=== PATIENT | female | born 1960 | race Caucasian/White ===

== ENCOUNTER → 2016-07-06 | Outpatient (CLI) | payer MEDICAID ==
[2016-07-06 12:04] LABS: Basophils # (A) 0.1 k/uL (0-0.2); Basophils % (A) 1 %; CH 33.5; CHCM 33.3; Eosinophils # (A) 0.2 k/uL (0-0.7); Eosinophils % (A) 2 %; HCT 42.3 % (34.0-46.0); HDW 2.13; HGB 14.5 gm/dL (11.4-16.0); Luc # (Auto) 0.15; Luc % (Auto) 2; Lymphocytes # (A) 3.8 k/uL (1.0-4.8); Lymphocytes % (A) 41 %; MCH 34.7 pg (25.0-35.0); MCHC 34.4 g/dL (31.0-37.0); MCV 101.1 fL (80.0-100.0); Macrocytosis Slight; Mean Platelet Volume 7.5; Monocytes # (A) 0.5 k/uL (0-1.0); Monocytes % (A) 5 %; Neutrophils # (A) 4.6 k/uL (1.3-7.7); Neutrophils % (A) 50 %; RBC 4.18 m/uL (3.80-5.40); WBC 9.2 k/uL (3.8-10.6); WBC (Perox) 9.49
[2016-07-06 12:20] LABS: ALT 31 U/L (9-52); AST 24 U/L (14-36); C Reactive Protein <5.0 mg/L (<10.0); Non-African American GFR(MDRD) >60 (>60 ml/min/1.73 sqM)
[2016-07-06 12:58] LABS: Erythrocyte Sedimentation Rate 25 mm/hr (0-20)
== END | disposition home or self-care (01) ==
LOC: LABWHC1 11:37
PROVIDERS: ATTEND Internal Medicine Rheumatology
DX: M05.79 Rheumatoid arthritis with rheumatoid factor of multiple sites without organ or systems involvement (principal); Z79.899 Other long term (current) drug therapy
CPT/HCPCS: 36415; 82565; 84450; 84460; 85025; 85652; 86140

== ENCOUNTER → 2016-07-20 | Outpatient (CLI) | payer MEDICAID ==
[2016-07-20 07:53] LABS: Basophils % (A) 1 %; CH 33.1; CHCM 33.4; Eosinophils # (A) 0.2 k/uL (0-0.7); Eosinophils % (A) 3 %; HCT 41.1 % (34.0-46.0); HDW 2.15; HGB 13.8 gm/dL (11.4-16.0); Luc # (Auto) 0.14; Luc % (Auto) 2; Lymphocytes # (A) 2.8 k/uL (1.0-4.8); Lymphocytes % (A) 39 %; MCH 33.4 pg (25.0-35.0); MCHC 33.6 g/dL (31.0-37.0); MCV 99.3 fL (80.0-100.0); Mean Platelet Volume 7.4; Monocytes # (A) 0.2 k/uL (0-1.0); Monocytes % (A) 3 %; Neutrophils # (A) 3.7 k/uL (1.3-7.7); Neutrophils % (A) 52 %; RBC 4.13 m/uL (3.80-5.40); RDW 12.9 % (11.5-15.5); WBC 7.2 k/uL (3.8-10.6); WBC (Perox) 6.84
--- NOTE | 2016-07-20 08:44 | CTL ---
EXAMINATION TYPE: CT Low Dose Lung DATE OF EXAM ORDERED: 07/20/2016 8:27 AM HISTORY: Personal history of tobacco use.. Lung cancer screening CT DLP: [address] CTDI: 2.14 mGy Automated exposure control for dose reduction was used. SCREENING VISIT: Initial study COMPARISON: None TECHNIQUE: Low dose computed tomography scan was performed through the chest at 1 mm thick sections a nd reconstructed images in the coronal plane at [address] DIAGNOSTIC QUALITY: Satisfactory FINDINGS: LUNG NODULES: None. In particular no greater than 4 mm suspicious nodules. There is 3 mm calcified subpleural nodule laterally right upper lung on axial image 90 series 4. There is 3 mm ill-defined nodular opacity right midlung on image 128. There is 2 mm nodule left lung base on axial image 220. LUNGS: COPD: Severity: Mild Fibrosis: Severity: Minimal apical fibrosis bilaterally Lymph nodes: No suspicious greater than 1 cm lymph nodes. Other findings: No suspicious consolidation. BILATERAL PLEURAL SPACE: Effusion: None Calcification: None Thickening: None Pneumothorax: None HEART: Heart Size: Normal Coronary calcification: Mild to borderline moderate Pericardial effusion: Small most prominent inferiorly OTHER FINDINGS: Upper abdomen: None Bony thorax: Focal spurring anteriorly in right aspect at T8-T9 level. Supraclavicular region: None Other: Fairly heterogeneously dense fibroglandular tissue is seen which correlates with most recent m ammogram here December 2014. Ascending aorta measures up to 3.7 cm in diameter. IMPRESSION: No suspicious pulmonary nodules identified. FOLLOW UP CT CHEST RECOMMENDATION: Annual low-dose lung screening CT CT LUNG RAD: Lung-Rad 1 Negative
[2016-07-20 10:46] LABS: ALT 41 U/L (9-52); AST 33 U/L (14-36); Alkaline Phosphatase 73 U/L (38-126); Anion Gap 7 mmol/L; Blood Urea Nitrogen 12 mg/dL (7-17); Calcium 9.4 mg/dL (8.4-10.2); Carbon Dioxide 26 mmol/L (22-30); Chloride 110 mmol/L (98-107); Cholesterol 210 mg/dL (<200); Creatine Kinase 113 U/L (30-135); Glucose 113 mg/dL (74-99); HDL Cholesterol 66 mg/dL (40-60); Non-African American GFR(MDRD) >60 (>60 ml/min/1.73 sqM); Potassium 4.5 mmol/L (3.5-5.1); Sodium 143 mmol/L (137-145); Total Bilirubin 0.7 mg/dL (0.2-1.3); Total Protein 7.2 g/dL (6.3-8.2); Triglycerides 75 mg/dL (<150)
[2016-07-20 11:30] LABS: Vitamin B12 850 pg/mL (239-931)
[2016-07-20 12:06] LABS: Erythrocyte Sedimentation Rate 25 mm/hr (0-20)
== END | disposition home or self-care (01) ==
LOC: RADCTMAIN 06:51
PROVIDERS: ATTEND Family Medicine
DX: Z12.2 Encounter for screening for malignant neoplasm of respiratory organs (principal); F17.200 Nicotine dependence, unspecified, uncomplicated; E78.5 Hyperlipidemia, unspecified; R53.83 Other fatigue
CPT/HCPCS: 84439; 80061; 80053; 85652; 82607; 83036; 82550; 84443; 85025; 82306; G0297

== ENCOUNTER → 2016-12-31 | Outpatient (CLI) | payer MEDICAID ==
[2016-12-31 13:14] LABS: Basophils # (A) 0.1 k/uL (0-0.2); Basophils % (A) 1 %; CH 34.2; CHCM 33.2; Eosinophils # (A) 0.1 k/uL (0-0.7); Eosinophils % (A) 2 %; HDW 2.17; HGB 13.7 gm/dL (11.4-16.0); Luc # (Auto) 0.25; Luc % (Auto) 3; Lymphocytes # (A) 2.7 k/uL (1.0-4.8); Lymphocytes % (A) 34 %; MCH 33.6 pg (25.0-35.0); MCHC 32.5 g/dL (31.0-37.0); MCV 103.2 fL (80.0-100.0); Macrocytosis Slight; Mean Platelet Volume 7.9; Monocytes # (A) 0.5 k/uL (0-1.0); Monocytes % (A) 6 %; Neutrophils # (A) 4.4 k/uL (1.3-7.7); Neutrophils % (A) 55 %; RBC 4.07 m/uL (3.80-5.40); RDW 13.2 % (11.5-15.5); WBC (Perox) 8.38
[2016-12-31 13:25] LABS: C Reactive Protein 10.5 mg/L (<10.0)
[2016-12-31 15:27] LABS: Erythrocyte Sedimentation Rate 41 mm/hr (0-20)
== END | disposition home or self-care (01) ==
LOC: LABWHC1 12:40
PROVIDERS: ATTEND Physician Assistant Medical
DX: M05.79 Rheumatoid arthritis with rheumatoid factor of multiple sites without organ or systems involvement (principal)
CPT/HCPCS: 36415; 82040; 82565; 84450; 84460; 84520; 85025; 85652; 86140

== ENCOUNTER → 2017-02-17 | Outpatient (CLI) | payer MEDICAID ==
--- NOTE | 2017-02-18 13:51 | MM ---
Reason for exam: screening (asymptomatic). Last mammogram was performed 2 years and 2 months ago. History: Patient is postmenopausal. Ultrasound-guided core biopsy of the right breast, July 17, 2002. Took estrogen for 2 years beginning at age 45. Took progesterone for 2 years beginning at age 45. Physical Findings: A clinical breast exam by your physician is recommended on an annual basis and results should be correlated with mammographic findings. MG 3D Screening Mammo W/Cad Bilateral CC and MLO view(s) were taken. Prior study comparison: December 28, 2014, bilateral MG screening mammo w CAD. January 27, 2013, bilateral digital screening mammo w/CAD. The breast tissue is heterogeneously dense. This may lower the sensitivity of mammography. Finding: There are typically benign round calcifications in the left breast. There is no discrete abnormality. ASSESSMENT: Benign, BI-RAD 2 RECOMMENDATION: Routine screening mammogram of both breasts in 1 year.
== END | disposition home or self-care (01) ==
LOC: RADMAMWWP 08:25
PROVIDERS: ATTEND Family Medicine
DX: Z12.31 Encounter for screening mammogram for malignant neoplasm of breast (principal)
CPT/HCPCS: 77063; G0202

== ENCOUNTER → 2017-07-22 | Outpatient (CLI) | payer MEDICAID ==
--- NOTE | 2017-07-22 08:49 | CTL ---
EXAMINATION TYPE: CT Low Dose Lung DATE OF EXAM ORDERED: 07/22/2017 HISTORY: . Lung cancer screening CT DLP: 97.[address] CTDI: 2.8 mGy Automated exposure control for dose reduction was used. SCREENING VISIT: COMPARISON: None TECHNIQUE: Low dose computed tomography scan was performed through the chest at 1 mm thick sections a nd reconstructed images in the coronal plane at [address] DIAGNOSTIC QUALITY: Satisfactory FINDINGS: LUNG NODULES: 1. Calcified pleural-based 3 mm nodule right upper lobe. 2. 3 mm subpleural left lower lobe pulmonary nodule. LUNGS: Mild emphysematous changes are seen. No pleural effusion, consolidation or pneumothorax. HEART: The heart is mildly prominent and there are changes of coronary artery calcification. Atherosclerotic change of the aorta noted. Trace amount pericardial fluid noted. OTHER FINDINGS: Hypertrophic and degenerative change of the spine noted. IMPRESSION: Benign findings. There are multiple less than 5 mm pulmonary nodules. FOLLOW UP CT CHEST RECOMMENDATION: [address] LUNG RAD: Lung-Rad 2 Benign Appearance or Behavior
== END | disposition home or self-care (01) ==
LOC: RADCTMAIN 07:22
PROVIDERS: ATTEND Nurse Practitioner Adult Health
DX: R91.8 Other nonspecific abnormal finding of lung field (principal); Z87.891 Personal history of nicotine dependence

== ENCOUNTER → 2017-07-26 | Outpatient (CLI) | payer MEDICAID ==
[2017-07-26 08:24] LABS: Basophils # (A) 0.1 k/uL (0-0.2); Basophils % (A) 1 %; Eosinophils # (A) 0.3 k/uL (0-0.7); Eosinophils % (A) 4 %; HCT 37.3 % (34.0-46.0); HGB 12.4 gm/dL (11.4-16.0); Lymphocytes # (A) 2.6 k/uL (1.0-4.8); Lymphocytes % (A) 37 %; MCH 32.6 pg (25.0-35.0); MCHC 33.3 g/dL (31.0-37.0); MCV 98.1 fL (80.0-100.0); Mean Platelet Volume 7.7; Monocytes # (A) 0.5 k/uL (0-1.0); Monocytes % (A) 7 %; Neutrophils # (A) 3.5 k/uL (1.3-7.7); Neutrophils % (A) 49 %; Platelet Count 260 k/uL (150-450); RDW 13.4 % (11.5-15.5)
[2017-07-26 08:55] LABS: ALT 25 U/L (9-52); AST 23 U/L (14-36); Albumin 3.8 g/dL (3.5-5.0); Alkaline Phosphatase 65 U/L (38-126); Anion Gap 10 mmol/L; Blood Urea Nitrogen 15 mg/dL (7-17); Calcium 9.4 mg/dL (8.4-10.2); Carbon Dioxide 27 mmol/L (22-30); Chloride 108 mmol/L (98-107); Cholesterol 182 mg/dL (<200); Creatine Kinase 121 U/L (30-135); Glucose 104 mg/dL (74-99); HDL Cholesterol 86 mg/dL (40-60); LDL Cholesterol,Calculated 82 mg/dL (0-99); Potassium 4.3 mmol/L (3.5-5.1); Sodium 145 mmol/L (137-145); Total Bilirubin 0.8 mg/dL (0.2-1.3); Total Protein 6.8 g/dL (6.3-8.2); Triglycerides 69 mg/dL (<150)
[2017-07-26 09:09] LABS: T4, Free (Free Thyroxine) 0.91 ng/dL (0.78-2.19)
[2017-07-26 10:30] LABS: Erythrocyte Sedimentation Rate 25 mm/hr (0-20)
[2017-07-26 11:49] LABS: C Reactive Protein <5.0 mg/L (<10.0)
[2017-07-26 17:21] LABS: Folate, Serum >24.0 ng/mL
[2017-07-26 17:48] LABS: Hepatitis C IgG Antibody Non-Reactive (Non-Reactive)
== END | disposition home or self-care (01) ==
LOC: LABWHC1 07:23
PROVIDERS: ATTEND Physician Assistant Medical
DX: Z00.00 Encounter for general adult medical examination without abnormal findings (principal); E78.5 Hyperlipidemia, unspecified; M05.79 Rheumatoid arthritis with rheumatoid factor of multiple sites without organ or systems involvement
CPT/HCPCS: 36415; 80053; 80061; 82550; 82607; 82746; 84439; 84443; 85025; 85652; 86140; 86803

== ENCOUNTER → 2017-09-30 | Outpatient (CLI) | payer MEDICAID ==
--- NOTE | 2017-10-01 14:06 | BD ---
EXAMINATION TYPE: Axial Bone Density DATE OF EXAM: 09/30/2017 COMPARISON: NONE CLINICAL HISTORY: Postmenopausal female. Osteoporosis screening. Height: 5 FT 3 IN Weight: 165 FRAX RISK QUESTIONS: History of Fracture in Adulthood: YES Secondary Osteoporosis: Rheumatoid Arthritis: YES RISK FACTORS HISTORY OF: Surgery to Spine/Hip(right/left)/Wrist (right/left): LUMBAR X 2 When: 1987 AND 2011 Active: YES Postmenopausal woman: AGE 50 MEDICATIONS: Additional Medications: ASHELY,METHOTREXATE, IBUPROFEN, FOLIC ACID, RANIDINE, Additional History: CARPAL TUNNEL SURG EXAM MEASUREMENTS: Bone mineral density about the R hip (g/cm2): 0.881 Bone mineral density about the L hip (g/cm2): 0.813 T Score values are as follows: -----R Neck: -1.1 -----L Neck: -1.6 -----R Total: -1.3 -----L Total: -1.2 Bone mineral density has: DECREASED -10.4 % since study of: 2010 Bone mineral density about the L Wrist (g/cm2): 0.647 T Score values are as follows: -----Dist. R+U: -0.8 -----Prox. R+U: -0.6 -----Radius total: -0.5 FOREARM NOT DONE BEFORE IMPRESSION: Osteopenia (T Score between -2.5 and -1). There is slightly increased risk of fracture and the patient may be considered for treatment. Re-Screen 2-5 years. NOTE: T-SCORE=SD OF THE YOUNG ADULT MEAN.
== END | disposition home or self-care (01) ==
LOC: RADBDWWP 15:01
PROVIDERS: ATTEND Internal Medicine Rheumatology
DX: M85.88 Other specified disorders of bone density and structure, other site (principal)
CPT/HCPCS: 77080

== ENCOUNTER → 2018-02-04 | Outpatient (CLI) | payer MEDICAID ==
[2018-02-04 07:42] LABS: Basophils % (A) 1 %; Eosinophils # (A) 0.2 k/uL (0-0.7); Eosinophils % (A) 3 %; HCT 38.9 % (34.0-46.0); Lymphocytes # (A) 2.4 k/uL (1.0-4.8); Lymphocytes % (A) 37 %; MCH 32.7 pg (25.0-35.0); MCHC 33.5 g/dL (31.0-37.0); MCV 97.5 fL (80.0-100.0); Mean Platelet Volume 7.1; Monocytes # (A) 0.4 k/uL (0-1.0); Monocytes % (A) 6 %; Neutrophils # (A) 3.3 k/uL (1.3-7.7); Neutrophils % (A) 52 %; Platelet Count 274 k/uL (150-450); RBC 3.99 m/uL (3.80-5.40); RDW 12.5 % (11.5-15.5); WBC 6.4 k/uL (3.8-10.6)
[2018-02-04 11:29] LABS: Erythrocyte Sedimentation Rate 28 mm/hr (0-20)
[2018-02-04 11:50] LABS: Vitamin D 25 Hydroxy 15.2 ng/mL (30.0-100.0)
[2018-02-04 11:54] LABS: Parathyroid Hormone Intact 63.4 pg/mL (14.0-72.0)
[2018-02-04 11:59] LABS: ALT 18 U/L (8-44); AST 23 U/L (13-35); C Reactive Protein <0.4 mg/dL (0.0-0.8); Calcium 9.2 mg/dL (8.7-10.3); Phosphorus 3.5 mg/dL (2.4-5.1)
== END | disposition home or self-care (01) ==
LOC: LABWHC1 07:15
PROVIDERS: ATTEND Physician Assistant
DX: M81.0 Age-related osteoporosis without current pathological fracture (principal); M05.79 Rheumatoid arthritis with rheumatoid factor of multiple sites without organ or systems involvement; R53.82 Chronic fatigue, unspecified
CPT/HCPCS: 36415; 82040; 82306; 82310; 82565; 83970; 84075; 84100; 84450; 84460; 84520; 85025; 85652; 86140

== ENCOUNTER → 2018-06-30 | Outpatient (CLI) | payer MEDICAID ==
[2018-06-30 08:10] LABS: Basophils # (A) 0.1 k/uL (0-0.2); Basophils % (A) 1 %; Eosinophils # (A) 0.2 k/uL (0-0.7); Eosinophils % (A) 4 %; HCT 39.7 % (34.0-46.0); HGB 12.5 gm/dL (11.4-16.0); Lymphocytes # (A) 2.6 k/uL (1.0-4.8); Lymphocytes % (A) 45 %; MCH 31.2 pg (25.0-35.0); MCHC 31.4 g/dL (31.0-37.0); MCV 99.5 fL (80.0-100.0); Mean Platelet Volume 7.2; Monocytes # (A) 0.3 k/uL (0-1.0); Monocytes % (A) 6 %; Neutrophils # (A) 2.4 k/uL (1.3-7.7); Neutrophils % (A) 42 %; Platelet Count 260 k/uL (150-450); RBC 3.99 m/uL (3.80-5.40); WBC 5.8 k/uL (3.8-10.6)
[2018-06-30 14:30] LABS: Erythrocyte Sedimentation Rate 32 mm/hr (0-20)
[2018-06-30 17:40] LABS: Vitamin D 25 Hydroxy 17.4 ng/mL (30.0-100.0)
[2018-06-30 17:53] LABS: ALT 19 U/L (8-44); AST 29 U/L (13-35); C Reactive Protein <0.4 mg/dL (0.0-0.8); Calcium 9.2 mg/dL (8.7-10.3); Phosphorus 3.5 mg/dL (2.4-5.1)
[2018-06-30 18:38] LABS: Parathyroid Hormone Intact 62.6 pg/mL (14.0-72.0)
== END | disposition home or self-care (01) ==
LOC: LABWHC1 07:18
PROVIDERS: ATTEND Internal Medicine Rheumatology
DX: M05.79 Rheumatoid arthritis with rheumatoid factor of multiple sites without organ or systems involvement (principal)
CPT/HCPCS: 36415; 82040; 82306; 82310; 82565; 83970; 84100; 84450; 84460; 84520; 85025; 85652; 86140

== ENCOUNTER → 2019-01-03 | Outpatient (CLI) | payer MEDICAID ==
[2019-01-03 10:45] LABS: Basophils % (A) 0 %; Eosinophils # (A) 0.2 k/uL (0-0.7); Eosinophils % (A) 3 %; HCT 38.6 % (34.0-46.0); HGB 12.7 gm/dL (11.4-16.0); Lymphocytes # (A) 3.2 k/uL (1.0-4.8); Lymphocytes % (A) 38 %; MCH 33.7 pg (25.0-35.0); MCV 102.1 fL (80.0-100.0); Macrocytosis Slight; Mean Platelet Volume 7.5; Monocytes # (A) 0.6 k/uL (0-1.0); Monocytes % (A) 7 %; Neutrophils # (A) 4.1 k/uL (1.3-7.7); Neutrophils % (A) 49 %; Platelet Count 256 k/uL (150-450); RBC 3.78 m/uL (3.80-5.40); RDW 13.6 % (11.5-15.5); WBC 8.4 k/uL (3.8-10.6)
[2019-01-03 14:21] LABS: Erythrocyte Sedimentation Rate 33 mm/hr (0-20)
[2019-01-03 16:37] LABS: ALT 22 U/L (8-44); AST 23 U/L (13-35); African American GFR (CKD) 80.5 (60.0-200.0); C Reactive Protein <0.4 mg/dL (0.0-0.8)
== END | disposition home or self-care (01) ==
LOC: LABWHC1 10:08
PROVIDERS: ATTEND Internal Medicine Rheumatology
DX: M05.79 Rheumatoid arthritis with rheumatoid factor of multiple sites without organ or systems involvement (principal)
CPT/HCPCS: 36415; 82040; 82565; 84450; 84460; 84520; 85025; 85652; 86140

== ENCOUNTER → 2019-02-13 | Outpatient (CLI) | payer BC ==
[2019-02-13 07:36] LABS: Basophils # (A) 0.1 k/uL (0-0.2); Basophils % (A) 1 %; Eosinophils # (A) 0.3 k/uL (0-0.7); Eosinophils % (A) 3 %; HCT 41.4 % (34.0-46.0); HGB 13.6 gm/dL (11.4-16.0); Lymphocytes # (A) 3.3 k/uL (1.0-4.8); Lymphocytes % (A) 34 %; MCH 34.1 pg (25.0-35.0); MCHC 32.9 g/dL (31.0-37.0); MCV 103.7 fL (80.0-100.0); Macrocytosis Slight; Mean Platelet Volume 7.1; Monocytes # (A) 0.5 k/uL (0-1.0); Monocytes % (A) 5 %; Neutrophils # (A) 5.5 k/uL (1.3-7.7); Neutrophils % (A) 56 %; Platelet Count 322 k/uL (150-450); RBC 3.99 m/uL (3.80-5.40); RDW 13.4 % (11.5-15.5); WBC 9.8 k/uL (3.8-10.6)
[2019-02-13 11:24] LABS: African American GFR (CKD) 92.9 (60.0-200.0); Albumin 4.2 g/dL (3.80-4.90); Albumin/Globulin Ratio 1.75 (1.60-3.17); Anion Gap 5.4 mmol/L (4.00-12.00); BUN/Creat Ratio 21.25 Ratio (12.00-20.00); Calcium 9.3 mg/dL (8.7-10.3); Carbon Dioxide 27.6 mmol/L (21.6-31.8); Chol/HDL Ratio 3.27; Globulin 2.4 g/dL (1.6-3.3); Non-African American GFR(CKD) 80.1 (60.0-200.0); Potassium 4.5 mmol/L (3.5-5.5); Total Bilirubin 0.5 mg/dL (0.2-1.2); Total Protein 6.6 g/dL (6.2-8.2); Uric Acid 4.1 mg/dL (2.9-7.7)
[2019-02-13 13:03] LABS: Hemoglobin A1C 5.9 % (4.0-6.0)
== END | disposition home or self-care (01) ==
LOC: LABWHC1 06:33
PROVIDERS: ATTEND Family Medicine
DX: Z00.00 Encounter for general adult medical examination without abnormal findings (principal); M25.571 Pain in right ankle and joints of right foot; Z13.1 Encounter for screening for diabetes mellitus
CPT/HCPCS: 36415; 80053; 80061; 83036; 84443; 84550; 85025

== ENCOUNTER → 2019-03-17 | Outpatient (CLI) | payer BC ==
--- NOTE | 2019-03-17 13:13 | MM ---
Reason for exam: screening (asymptomatic). Last mammogram was performed 2 years and 1 month ago. History: Patient is postmenopausal. Ultrasound-guided core biopsy of the right breast, July 17, 2002. Took estrogen for 2 years beginning at age 45. Took progesterone for 2 years beginning at age 45. Physical Findings: A clinical breast exam by your physician is recommended on an annual basis and results should be correlated with mammographic findings. MG Screening Mammo w CAD Bilateral CC and MLO view(s) were taken. Prior study comparison: February 17, 2017, bilateral MG 3d screening mammo w/cad. December 28, 2014, bilateral MG screening mammo w CAD. The breast tissue is heterogeneously dense. This may lower the sensitivity of mammography. There are benign appearing round calcifications in the left breast. There is no discrete abnormality. ASSESSMENT: Benign, BI-RAD 2 RECOMMENDATION: Routine screening mammogram of both breasts in 1 year.
== END | disposition home or self-care (01) ==
LOC: RADMAMWWP 07:15
PROVIDERS: ATTEND Family Medicine
DX: Z12.31 Encounter for screening mammogram for malignant neoplasm of breast (principal)
CPT/HCPCS: 77067

== ENCOUNTER → 2020-02-23 | Outpatient (CLI) | payer BC ==
[2020-02-23 07:53] LABS: Basophils # (A) 0.1 k/uL (0-0.2); Basophils % (A) 1 %; Eosinophils # (A) 0.4 k/uL (0-0.7); Eosinophils % (A) 5 %; HCT 42.8 % (34.0-46.0); HGB 13.9 gm/dL (11.4-16.0); Lymphocytes # (A) 2.9 k/uL (1.0-4.8); Lymphocytes % (A) 35 %; MCH 32.2 pg (25.0-35.0); MCHC 32.4 g/dL (31.0-37.0); MCV 99.3 fL (80.0-100.0); Mean Platelet Volume 7.4; Monocytes # (A) 0.4 k/uL (0-1.0); Monocytes % (A) 4 %; Neutrophils # (A) 4.6 k/uL (1.3-7.7); Neutrophils % (A) 54 %; Platelet Count 293 k/uL (150-450); RBC 4.31 m/uL (3.80-5.40); RDW 13.1 % (11.5-15.5); WBC 8.5 k/uL (3.8-10.6)
[2020-02-23 11:22] LABS: Albumin 4.2 g/dL (3.80-4.90); Albumin/Globulin Ratio 1.56 (1.60-3.17); Anion Gap 6.1 mmol/L (4.00-12.00); BUN/Creat Ratio 22.22 Ratio (12.00-20.00); Calcium 9.4 mg/dL (8.7-10.3); Carbon Dioxide 25.9 mmol/L (21.6-31.8); Chol/HDL Ratio 3.09; Globulin 2.7 g/dL (1.6-3.3); Potassium 4.4 mmol/L (3.5-5.5); Total Bilirubin 0.5 mg/dL (0.2-1.2); Total Protein 6.9 g/dL (6.2-8.2)
[2020-02-23 12:14] LABS: Hemoglobin A1C 6.3 % (4.0-6.0)
== END | disposition home or self-care (01) ==
LOC: LABWHC1 07:01
PROVIDERS: ATTEND Family Medicine
DX: Z00.00 Encounter for general adult medical examination without abnormal findings (principal)
CPT/HCPCS: 36415; 80053; 80061; 83036; 84443; 85025

== ENCOUNTER → 2020-03-18 | Outpatient (CLI) | payer BC ==
[2020-03-18 18:04] LABS: Hepatitis A Antibody IgM Non-Reactive (Non-Reactive); Hepatitis B Core IgM Non-Reactive (Non-Reactive); Hepatitis B Surface Antigen Non-Reactive (Non-Reactive); Hepatitis C IgG Antibody Non-Reactive (Non-Reactive)
== END | disposition home or self-care (01) ==
LOC: LABWHC1 07:42
PROVIDERS: ATTEND Family Medicine
DX: M06.9 Rheumatoid arthritis, unspecified (principal)
CPT/HCPCS: 36415; 80074; 86480; 86704; 87340

== ENCOUNTER → 2021-04-29 | Outpatient (CLI) | payer BC ==
--- NOTE | 2021-04-30 09:04 | MM ---
Reason for exam: screening (asymptomatic). Last mammogram was performed 2 years and 1 month ago. History: Patient is postmenopausal. Ultrasound-guided core biopsy of the right breast, July 17, 2002. Took estrogen for 2 years beginning at age 45. Took progesterone for 2 years beginning at age 45. Physical Findings: A clinical breast exam by your physician is recommended on an annual basis and results should be correlated with mammographic findings. MG 3D Screening Mammo W/Cad Bilateral CC and MLO view(s) were taken. Prior study comparison: March 17, 2019, bilateral MG screening mammo w CAD. February 17, 2017, bilateral MG 3d screening mammo w/cad. The breast tissue is heterogeneously dense. This may lower the sensitivity of mammography. There is no discrete abnormality. No significant changes when compared with prior studies. ASSESSMENT: Negative, BI-RAD 1 RECOMMENDATION: Routine screening mammogram of both breasts in 1 year.
== END | disposition home or self-care (01) ==
LOC: RADMAMWWP 07:22
PROVIDERS: ATTEND Family Medicine
DX: Z12.31 Encounter for screening mammogram for malignant neoplasm of breast (principal); Z78.0 Asymptomatic menopausal state
CPT/HCPCS: 77063; 77067

== ENCOUNTER → 2022-10-06 | Outpatient (CLI) | payer MEDICARE ==
[2022-10-06 16:24] LABS: Basophils # (A) 0.1 k/uL (0-0.2); Basophils % (A) 1 %; Eosinophils # (A) 0.3 k/uL (0-0.7); Eosinophils % (A) 3 %; HCT 45.1 % (34.0-46.0); HGB 14.5 gm/dL (11.4-16.0); Lymphocytes # (A) 3.6 k/uL (1.0-4.8); Lymphocytes % (A) 39 %; MCH 33.3 pg (25.0-35.0); MCHC 32.3 g/dL (31.0-37.0); MCV 103.1 fL (80.0-100.0); Macrocytosis Slight; Mean Platelet Volume 8.2; Monocytes # (A) 0.6 k/uL (0-1.0); Monocytes % (A) 6 %; Neutrophils # (A) 4.5 k/uL (1.3-7.7); Neutrophils % (A) 49 %; Platelet Count 277 k/uL (150-450); RBC 4.37 m/uL (3.80-5.40); RDW 12.6 % (11.5-15.5); WBC 9.2 k/uL (3.8-10.6)
--- NOTE | 2022-10-06 16:33 | CT ---
EXAMINATION TYPE: CT abdomen pelvis wo con DATE OF EXAM: 10/06/2022 COMPARISON: None INDICATION: Rt side abdomen and flank pain. DLP: 598.6 mGycm, Automated exposure control for dose reduction was used. CONTRAST: 0 mL of Isovue 300. Study performed without Oral Contrast TECHNIQUE: Axial images were obtained from above the diaphragm to the pubic rami in the axial plane a t 5 mm thick sections. Reconstructed images are reviewed on the computer in the coronal plane. FINDINGS: Limited CT sections are obtained the lung bases. The lung bases are clear. CT ABDOMEN: Limitation due to beam hardening artifact through the lower lumbar spine. Liver: Normal Spleen: Normal Pancreas: Normal Adrenal glands: The adrenal glands are normal. Gallbladder: Normal Kidneys: No masses are evident. No hydronephrosis is present. No cysts are present. Delayed images were obtained through the kidneys, which remain unremarkable. Aorta: Vascular calcification is within the aorta. There is mild fusiform prominence of the distal a bdominal aorta with an AP dimension of 2.9 cm. This terminates above the bifurcation. Inferior vena cava: Normal. CT PELVIS: Loops of bowel within the abdomen and pelvis are normal. There are loops of bowel which are incom pletely distended or lack oral contrast limiting their evaluation. Appendix: Normal as visualized. Urinary bladder: Normal. Genitourinary structures: Osseous structures: No suspicious lytic or sclerotic lesions. IMPRESSIONS: 1. Mild fusiform prominence distal abdominal aorta with the greatest AP dimension of 2.9 cm. 2. Appendix is visualized appears unremarkable. No dilated appendix or inflammatory changes evident.
[2022-10-06 16:36] LABS: ALT 39 U/L (4-34); AST 40 U/L (14-36); African American GFR (CKD) 79 (>60 ml/min/1.73 sqM); Albumin 4.3 g/dL (3.5-5.0); Albumin/Globulin Ratio 1.1; Alkaline Phosphatase 82 U/L (38-126); Anion Gap 5 mmol/L; Blood Urea Nitrogen 24 mg/dL (7-17); Carbon Dioxide 28 mmol/L (22-30); Chloride 105 mmol/L (98-107); Globulin 3.9 g/dL; Glucose 109 mg/dL (74-99); Non-African American GFR(CKD) 69 (>60 ml/min/1.73 sqM); Sodium 138 mmol/L (137-145); Total Bilirubin 0.6 mg/dL (0.2-1.3); Total Protein 8.2 g/dL (6.3-8.2)
== END | disposition home or self-care (01) ==
LOC: RADCTMAIN 15:56
PROVIDERS: ATTEND Family Medicine
DX: R10.31 Right lower quadrant pain (principal); I70.0 Atherosclerosis of aorta
CPT/HCPCS: 74176; 80053; 85025

== ENCOUNTER → 2024-07-13 | Outpatient (CLI) | payer MEDICARE ==
--- NOTE | 2024-07-13 12:59 | CTL ---
EXAMINATION TYPE: CT Low Dose Lung DATE OF EXAM ORDERED: 07/13/2024 COMPARISON: CT Low Dose Lung 05/20/2023, 07/22/2017, 07/20/2016 CLINICAL INDICATION: Female, 64 years old with history of Z12.2 SCREENING F17.210 NICOTINE DEPENDENCE ; [facility], SMOKER, Lung cancer screening, History of Smoking/tobacco use. TECHNIQUE: Low dose computed tomography scan was performed through the chest at 1 mm thick sections a nd reconstructed images in multiple planes at 1 mm and [address] DLP: 85.[address] CTDI: 2.3 mGy Automated exposure control for dose reduction was used. CT DIAGNOSTIC QUALITY: Satisfactory FINDINGS: Nodules: Medial left upper lobe 1.7 mm pulmonary nodule which is not definitively visualized on prior exam (se jesus 6, image 12). Peripheral right midlung 2.8 mm calcified granuloma. Stable superior segment right lower lobe 5.5 mm elongated nodular opacity (series 6, image 27). Right midlung 2.6 mm stable pulmonary nodule (series 6, image 31). LUNGS: COPD: Severity: Mild Fibrosis: Severity: None Lymph nodes: None Other findings: None RIGHT PLEURAL SPACE: Effusion: None Calcification: None Thickening: None Pneumothorax: None LEFT PLEURAL SPACE: Effusion: None Calcification: None Thickening: None Pneumothorax: None HEART: Heart Size: Normal Coronary Calcification: Small Pericardial Effusion: None OTHER FINDINGS: Upper abdomen: None Bony thorax: Minimal multilevel degenerative disc disease. Left shoulder arthropathy. Supraclavicular region: None Other: Stable ectasia of the ascending thoracic aorta measuring up to 3.9 cm. IMPRESSION: 1. Few stable pulmonary nodules with new medial left upper lobe 1.7 mm pulmonary nodule. 2. Mild emphysematous changes. CT LUNG RAD AND CT CHEST RECOMMENDATION: Lung-Rad 2 Benign Appearance or Behavior: Continue annual sc reening with LDCT in 12 months. S Modifier (other clinically significant findings): None [facility], , 07/13/2024 12:57 PM
== END | disposition home or self-care (01) ==
LOC: RADCTMAIN 11:20
PROVIDERS: ATTEND Family Medicine
DX: Z12.2 Encounter for screening for malignant neoplasm of respiratory organs (principal); F17.210 Nicotine dependence, cigarettes, uncomplicated; R91.8 Other nonspecific abnormal finding of lung field; J43.9 Emphysema, unspecified
CPT/HCPCS: 71271

== ENCOUNTER → 2024-10-13 | Outpatient (CLI) | payer MEDICARE ==
--- NOTE | 2024-10-14 02:56 | CT ---
EXAMINATION TYPE: CT chest wo con DATE OF EXAM: 10/13/2024 11:58 AM COMPARISON: 07/13/2024 CLINICAL INDICATION: Female, 64 years old with history of R91.1 SOLITARY PULMONARY NODULE, solidarity pulmonary nodule TECHNIQUE: Axial images were obtained at 5 mm thick sections. Reconstructed images are reviewed on [employer] computer in the coronal plane. Contrast used: mL of , (none if empty) Oral contrast used: (none if empty) CT DLP: 446 mGycm, Automated exposure control for dose reduction was used. FINDINGS: Portion of the thyroid visualized is normal. No suspicious lung nodules or focal infiltrates are present. Punctate nodular areas in the periphery of the right upper lung field. Series 4 image 20. The punctate nodularity within the medial left upper lobe is not identified on the current exam. No enlarged mediastinal or hilar adenopathy is evident. The ascending aorta diameter at the level o f the main pulmonary artery is 3.7 cm. The main pulmonary artery diameter at the bifurcation is 3.2 cm. Mild coronary artery calcifications present. Limited CT sections are obtained through the upper abdomen. Abdomen is essentially unremarkable. IMPRESSION: 1. Approximately benign findings, no significant interval change evident. Recommend low-dose CT chest for screening schedule.. [facility], , 10/14/2024 2:54 AM
== END | disposition home or self-care (01) ==
LOC: RADCTMAIN 11:39
PROVIDERS: ATTEND Nurse Practitioner Adult Health
DX: R91.1 Solitary pulmonary nodule (principal)
CPT/HCPCS: 71250